=== PATIENT | male | born 1995 | race Caucasian/White ===

== ENCOUNTER 2017-07-14 12:52 | Emergency (ER) | payer BC ==
[~2017-07-14] VITALS: Ht 180.3 cm; Wt 81.0 kg
[2017-07-14 13:07] VITALS: TEMP 36.7; Ht 180.3 cm; Wt 81.0 kg
--- NOTE | 2017-07-14 13:53 | DIAGNOSTIC IMAGING REPORT ---
R ANKLE MIN 3 VIEWS ROUTINE CLINICAL HISTORY: Right ankle pain status post trauma COMPARISON: None. DISCUSSION: No fractures or dislocations are visualized. IMPRESSION: No fractures or dislocations identified. Electronically signed by: Cali Joy M.D. 07/14/2017 1:52 PM Dictated Date/Time: 07/14/2017 1:52 PM
--- NOTE | 2017-07-14 13:56 | DIAGNOSTIC IMAGING REPORT ---
R HAND MIN 3 VIEWS ROUTINE CLINICAL HISTORY: Right hand pain status post trauma COMPARISON: None. DISCUSSION: There is slight prominence of the distal radial epiphyseal plate. A nondisplaced epiphyseal plate fracture cannot be excluded. There is an old fifth metacarpal neck deformity. No acute metacarpal or phalangeal fractures are visualized. IMPRESSION: 1. Slight prominence of the distal radial epiphyseal plate. Please correlate with the patient's site of pain to exclude a nondisplaced epiphyseal plate fracture Electronically signed by: Cali Joy M.D. 07/14/2017 1:54 PM Dictated Date/Time: 07/14/2017 1:53 PM
--- NOTE | 2017-07-14 13:57 | DIAGNOSTIC IMAGING REPORT ---
R WRIST MIN 3 VIEWS ROUTINE CLINICAL HISTORY: Right wrist pain status post trauma COMPARISON: None. DISCUSSION: There is subtle widening of the distal radial epiphyseal plate. This could indicate a nondisplaced epiphyseal plate fracture. Correlation with the patient's site of pain is recommended. A follow-up radiograph in 10-14 days should be considered. IMPRESSION: Possible nondisplaced distal radial epiphyseal plate fracture. Correlation with the patient's site of pain is recommended. A follow-up radiograph in 10-14 days should be considered Electronically signed by: Cali Joy M.D. 07/14/2017 1:56 PM Dictated Date/Time: 07/14/2017 1:54 PM
--- NOTE | 2017-07-14 14:30 | DIAGNOSTIC IMAGING REPORT ---
R ELBOW MIN 3 VIEWS ROUTINE CLINICAL HISTORY: Right elbow pain status post trauma COMPARISON: None. DISCUSSION: The fat pads are not displaced. No fractures or dislocations are visualized. IMPRESSION: No fractures or dislocations identified. Electronically signed by: Cali Joy M.D. 07/14/2017 2:29 PM Dictated Date/Time: 07/14/2017 2:29 PM
[2017-07-14] MEDS ORDERED: ASPI325T45 PO (14:39)
[2017-07-14 15:39] VITALS: BP 149/77; PULSE 80; O2SAT 97
--- NOTE | 2017-07-14 19:46 | EMERGENCY ROOM VISIT NOTE ---
ED Visit Note First contact with patient: 13:29 Chief Complaint: I think I might have broken my arm and ankle. History of Present Illness: Mr. Patrick is a 21-year-old male who ambulates into the ED complaining of right hand, right wrist, right elbow and right ankle pain. Patient reports yesterday he was walking with friends. He turned around while walking to talk to the friends behind him and fell into a pothole. He does not remember the specific mechanism of injury but after the fall he reports he was having right hand pain over the second MCP joint, right wrist pain over the distal radius, right elbow pain over the proximal radius and right ankle pain over the lateral malleolus. He reports at the time of the injury the symptoms were mild but has gradually increased in intensity. Patient also reports at the time of the injury he did not strike his head or have a loss of consciousness and since the injury he is not having any signs of head injury. Patient places the majority of his discomfort over the right second metacarpal area and over the distal radius. He describes this as a sharp and throbbing sensation. He rates his discomfort 8/10. Pain is nonradiating. Pain worsens with palpation, flexion and extension of the second MCP joint, flexion, extension and radial deviation of the wrist. He has not identified any alleviating factors related to the pain. He has not taken medication for pain prior to arrival at the hospital. Associated with this pain he is experiencing pain over the lateral aspect of the proximal humerus and over the lateral right ankle. He denies any associated symptoms including numbness, weakness of the extremities. He reports any previous significant injury he has had was this past summer and he had a severe right ankle sprain. Review of Systems: As noted above in history of present illness. Past Medical History: Patient denies. Current Medications: Patient denies. Allergies to Medications: Penicillin. Social History: Patient is currently university student; he feels safe in his home environment; patient denies tobacco use. Physical Examination: Vital Signs: Date Time Temp Pulse Resp B/P (MAP) Pulse Ox O2 Delivery O2 Flow Rate FiO2 07/14/17 15:39 80 18 149/77 97 07/14/17 13:07 36.7 84 18 149/96 95 Room Air GENERAL: 21-year-old male in mild distress due to pain, nontoxic-appearing, afebrile and hemodynamically stable. NEUROLOGICAL: Awake, alert and oriented to person, place and time. Answering questions appropriately and following commands. Normal gait. Good hand eye coordination. No focal motor or sensory deficits. SKIN: Warm, dry and pink. Right Hand: Patient has superficial abrasions to the palmar aspect of the right hand. Right Elbow: Patient has a superficial abrasion to the lateral aspect of the distal radius. RIGHT UPPER EXTREMITY: No gross bony deformities. No tenderness in the shoulder. Mild tenderness over the lateral aspect of the distal radius in the area of his abrasion. I do not appreciate any bony deformity or crepitus. With the wrist stabilized patient has full range of motion in pronation and supination of the forearm and flexion and extension of the elbow. Patient has moderate tenderness over the posterior aspect of the distal radius with mild swelling. I do not appreciate any bony deformity or crepitus. He has worsening discomfort with all movements and palpation of the wrist. There is no pain in the anatomical snuffbox. On the right hand he has pain, swelling and erythema over the second MCP joint. I do not appreciate any bony deformity or crepitus. He does have full range of motion in flexion and extension of the second MCP, PIP and DIP joints. Throughout the extremity the skin is warm and pink and capillary refill is brisk. He is able to distinguish light sensations to all dermatomes. RIGHT LOWER EXTREMITY: No gross bony deformity. No shortening or malrotation. No tenderness in the hip, thigh, knee or lower leg. Mild tenderness over the lateral malleolus without bony deformity or crepitus. No ligamentous laxity of the ankle. There is no local swelling or ecchymosis. He has full range of motion in plantarflexion, dorsiflexion, inversion and eversion of the ankle against resistance. Throughout the foot the skin was warm and pink and capillary refill was brisk. ED Course: Patient is assessed as noted above. Patient's medication list was reviewed. Patient was offered pain medication and refused. Right Wrist X-Rays: Were read by myself and the radiologist showing a nondisplaced distal radial epiphyseal plate fracture. Right Hand X-Rays: Were read by myself and shows no acute fractures or dislocations. Once again there is a prominence of the distal radial epiphyseal plate consistent with a nondisplaced fracture. Right Elbow X-Rays: Were read by myself and the radiologist showing no acute fractures or dislocations. No elevation or displacement of the fat pads. Right Ankle X-Rays: Were read by myself and the radiologist and shows no acute fractures or dislocations. No obvious joint or soft tissue swelling. Patient soft tissue injuries were cleansed with antibacterial soap and water and covered with a bacitracin dressing. Patient was placed in a volar wrist splint for his distal radius fracture. Patient was educated about today's findings and instructed on his treatment plan ; he verbalizes understanding and agreement with this plan. Clinical Impression: Right epiphyseal plate fracture. Right lateral elbow pain. Right second MCP joint pain. Right ankle pain. Abrasions to the hand and forearm. Status post fall. Disposition: Patient discharged home in stable condition; prior to departure he was reassessed and subjectively reported he was feeling better and rated his wrist pain 7/10. Plan: Comfort measures were discussed with the patient including alternating ibuprofen and acetaminophen for pain, ice for pain and swelling, splint use. Patient was educated on wound care and signs of infection. Patient was encouraged to follow-up with [facility] for definitive care for his fracture. Patient was encouraged to return to the ED for worsening/uncontrolled pain, any signs of infection, right upper extremity weakness/numbness/tingling or any new/ concerning symptoms.
== END 2017-07-14 15:40 | disposition home or self-care (01) ==
LOC: C.EDB 12:54 → C.EDD 15:40
DX: S59.201A Unspecified physeal fracture of lower end of radius, right arm, initial encounter for closed fracture (principal); M25.521 Pain in right elbow; M79.641 Pain in right hand; M25.571 Pain in right ankle and joints of right foot; S60.511A Abrasion of right hand, initial encounter; S50.811A Abrasion of right forearm, initial encounter; W18.30XA Fall on same level, unspecified, initial encounter; Z88.0 Allergy status to penicillin